=== PATIENT | male | born 1965 | race African-American/Black ===

== ENCOUNTER 2019-02-21 14:19 | Emergency (ER) | payer SELFPAY ==
--- NOTE | 2019-02-21 17:47 | RAD ---
PORTABLE CHEST: 02/21/2019 PROVIDED CLINICAL HISTORY: Cirrhosis. FINDINGS: Cardiac and mediastinal silhouette is within normal limits. Opacity at the medial right lung base, i ncompletely characterized on the basis of this study, may reflect subsegmental atelectasis or superim position of normal structures. Air space disease cannot be excluded. No pleural fluid or pneumothor ax apparent. IMPRESSION: Question right medial basilar parenchymal opacity. Recommend correlation with lateral view. POS: AURELIANO
[2019-02-21 18:04] LABS: #Eosinphils 0.6 thou/uL (0.0-0.7); #Lymphocytes 2.1 thou/uL (1.20-3.40); #Monocytes 1.3 thou/uL (0.11-0.59); #Neutrophils 6.1 thou/uL (1.40-6.50); %Basophils 0.4 % (0.0-1.0); %Eosinophils 6.2 % (0.0-10.0); %Lymphocytes 20.3 % (21.0-51.0); %Monocytes 13.2 % (0.0-10.0); Hemoglobin 11.4 g/dL (14.0-18.0); Mean Corpuscular HGB CONC 32.4 g/dL (32.0-36.0); Mean Platelet Volume 8.5 fL (7.4-10.4); Platelet Count 121 thou/uL (130-400); RBC Distribution Width 18.6 % (11.5-14.5); Red Blood Cell (RBC) Count 3.35 mill/uL (4.70-6.10); White Blood Cell (WBC) Count 10.2 thou/uL (4.8-10.8)
[2019-02-21 18:15] LABS: Anisocytosis SLIGHT = 6-15 cells (100X) (0-5/hpf); MDiff Complete? YES; Macrocytosis SLIGHT = 6-15 cells (100X) (0-5/hpf); Platelet Morphology Comment Appears Decreased; Polychromasia SLIGHT = 2-3 cells (100X) (0-2/hpf)
[2019-02-21 18:20] LABS: ALT (SGPT) 20 U/L (8-55); AST (SGOT) 50 U/L (5-34); Albumin 2.5 g/dL (3.5-5.0); Alkaline Phosphatase 117 U/L (40-150); Anion Gap 14 mmol/L (10-20); BUN (Urea Nitrogen) 17 mg/dL (8.4-25.7); Bilirubin, Total 3.1 mg/dL (0.2-1.2); Calc. Creatinine Clearance 0 mL/min (70-130); Calcium 7.9 mg/dL (7.8-10.44); Carbon Dioxide 20 mmol/L (22-29); Chloride 96 mmol/L (98-107); Estimated GFR-MDRD 58; Globulin 4.7 g/dL (2.4-3.5); Glucose 122 mg/dL (70-105); Potassium 3.8 mmol/L (3.5-5.1); Protein, Total 7.2 g/dL (6.0-8.3); Sodium 126 mmol/L (136-145)
== END 2019-02-21 19:55 | disposition home or self-care (01) ==
LOC: ERS 14:19
DX: M79.89 Other specified soft tissue disorders (principal); K74.60 Unspecified cirrhosis of liver; E87.1 Hypo-osmolality and hyponatremia; N19 Unspecified kidney failure; Z87.891 Personal history of nicotine dependence; Z79.899 Other long term (current) drug therapy
CPT/HCPCS: 36415; 71045; 80053; 83880; 84484; 85025